=== PATIENT | female | born 1990 | race Caucasian/White ===

== ENCOUNTER 2017-04-09 04:09 | Emergency (ER) | payer OTHER ==
[~2017-04-09] VITALS: Ht 167.6 cm; Wt 123.0 kg
[~2017-04-09 04:09] MED LIST: PRENAT PO
[2017-04-09 04:15] VITALS: Ht 167.6 cm; Wt 123.0 kg
[2017-04-09] MEDS ORDERED: ONDANSETRON 4 MG INJ IV STA (04:23)
[2017-04-09] MEDS ORDERED: FAMOTIDINE 20 MG INJ IV STA (04:23)
[2017-04-09] MEDS ORDERED: SOD CHLORIDE 0.9% 1,000 ML IV STA (04:23)
[2017-04-09] MEDS ORDERED: KETOROLAC 30 MG INJ IV STA (04:23)
[2017-04-09 04:45] LABS: BASOPHIL # 0.1 10^3/ul (0.0-0.1); BASOPHILS % 0.8 % (0.0-2.0); EOSINOPHILS # 0.2 10^3/ul (0.0-0.5); EOSINOPHILS % 2.6 % (0.0-7.0); HEMATOCRIT 42.8 % (37.0-47.0); HEMOGLOBIN 14.1 g/dl (12.0-16.0); LYMPHOCYTES % 32.2 % (15.0-51.0); MEAN CORPUSCULAR HEMOGLOBIN 28.5 pg (29.0-33.0); MEAN CORPUSCULAR HGB CONC 32.9 g/dl (32.0-37.0); MEAN CORPUSCULAR VOLUME 86.6 fl (82.0-101.0); MONOCYTE # 1.1 10^3/ul (0.3-0.9); NEUTROPHIL # 4.9 10^3/ul (1.6-7.5); NEUTROPHILS % 52.1 % (39.0-77.0); PLATELET COUNT 314 10^3/UL (140-415); RED BLOOD COUNT 4.94 10^6/ul (4.20-5.40); RED CELL DISTRIBUTION WIDTH 13.1 % (11.5-14.5); WHITE BLOOD COUNT 9.3 10^3/ul (4.8-10.8)
[2017-04-09] MEDS ORDERED: morphine 4 MG/ML VIAL IV STA (04:53)
[2017-04-09 05:07] LABS: ALBUMIN 4.7 g/dl (3.3-4.9); ALBUMIN/GLOBULIN RATIO 1.38; BILIRUBIN,INDIRECT 0.3 mg/dl (0-1.1); BILIRUBIN,TOTAL 0.3 mg/dl (0.2-1.3); CALCIUM 10.4 mg/dl (8.4-10.2); CREATININE 0.76 mg/dl (0.44-1.00); POTASSIUM 4.2 mmol/L (3.5-5.1); TOTAL PROTEIN 8.1 g/dl (6.1-8.1)
--- NOTE | 2017-04-09 05:24 | RADRPT ---
PROCEDURE: Abdominal ultrasound, limited. CLINICAL INDICATION: Abdominal pain. TECHNIQUE: Multiple real-time images were acquired of the patient's right upper abdomen utilizing a high resolution transducer. COMPARISON: 04/15/2016. FINDINGS: The liver demonstrates increased echogenicity and size measuring 17.4 cm. There is no focal mass or intrahepatic biliary ductal dilatation. The portal vein is patent. The gallbladder is distended. Multiple echogenic gallstones are identified. There is focal tenderness over the gallbladder. The re is no pericholecystic fluid or gallbladder wall thickening. The common bile duct measures 4.1 mm in maximal dimension. The pancreas is obscured by overlying bowel gas. No free fluid is identifie d. The right kidney is normal size and echogenicity measuring 12.1 cm. There is no focal renal mass or echogenic calculus identified. There is no obstructive uropathy. The visualized abdominal aorta a nd vena cava are unremarkable. IMPRESSION: Cholelithiasis with positive sonographic Dailey's sign. There is no gallbladder wall thickening or pericholecystic fluid. Fatty infiltration of the liver. Pancreas obscured by overlying bowel gas. .Stef Valenzuela MD, MD Date Time Electronically viewed and signed by .Stef Valenzuela MD, MD on 04/09/2017 05:23 .T/
[2017-04-09 05:29] VITALS: BP 134/81; PULSE 52; RESP 16
--- NOTE | 2017-04-09 05:30 | ERD ---
ER Documentation Chief Complaint Date/Time DATE: 04/09/17 TIME: 05:28 Chief Complaint RUQ pain 10/10 this evening, history of gallstones HPI This is a 26-year-old female who presents to the emergency room for evaluation of abdominal pain. The patient states that she has had abdominal pain for the past 4 hours and she localizes it to the right upper quadrant. She does state she has a history of gallstones. She does see her pain for similar to previous gallstone attacks. The patient states that her pain does radiate to the back and is associated with mild nausea but no vomiting. No fevers at home. Patient denies any relieving factors for her symptoms and states that movement does aggravate her symptoms. ROS All systems reviewed and are negative except as per history of present illness. Medications Home Meds Reported Medications Multivit/Min/Fol Ac/Iron/Pren* ( S*) 1 Tab Tab, 1 TAB PO DAILY, TAB 04/17/16 Allergies Allergies: Coded Allergies: No Known Allergy (Verified , 07/12/16) PMhx/Soc History of Surgery: Yes () Anesthesia Reaction: No Hx Neurological Disorder: No Hx Respiratory Disorders: Yes (ASTHMA) Hx Cardiac Disorders: No Hx Psychiatric Problems: No Hx Miscellaneous Medical Probl: No Hx Alcohol Use: No Hx Substance Use: No Hx Tobacco Use: No Smoking Status: Unknown if ever smoked Physical Exam Vitals Vital Signs Date Time Temp Pulse Resp B/P Pulse Ox O2 Delivery O2 Flow Rate FiO2 04/09/17 04:15 98.6 75 20 143/69 97 Physical Exam INITIAL VITAL SIGNS: Reviewed by me GENERAL: The patient is well developed and appropriate for usual state of health in no apparent distress HEENT: Pupils equal, round, and reactive to light. EOMI. There is no scleral icterus. NECK: C-spine is soft and supple, there is no meningismus. There is no cervical lymphadenopathy. LUNGS: Clear to auscultation bilaterally. There are no rales, wheezes or rhonchi. HEART: Regular rate and rhythm, no murmurs, clicks, rubs or gallops. ABDOMEN: Positive Dailey sign, other soft, non-tender, non-distended. There are bowel sounds in all four quadrants. No rebound or guarding. EXTREMITIES: There is no peripheral cyanosis or edema. No focal swelling or erythema. NEUROLOGICAL: The patient moves all four extremities with 5/5 strength. Cranial nerves II - XII are intact. Normal gait. Alert and oriented SKIN: There is no apparent rash or petechiae. HEME/LYMPHATIC: There is no evidence of excessive bruising or lymphedema. PSYCHIATRIC: The patient does not appear anxious or depressed. Result Diagram: 04/09/17 0430 04/09/17 0430 Results 24 hrs Laboratory Tests Test 04/09/17 04:30 White Blood Count 9.310^3/ul Red Blood Count 4.9410^6/ul Hemoglobin 14.1g/dl Hematocrit 42.8% Mean Corpuscular Volume 86.6fl Mean Corpuscular Hemoglobin 28.5pg Mean Corpuscular Hemoglobin Concent 32.9g/dl Red Cell Distribution Width 13.1% Platelet Count 48017^3/UL Mean Platelet Volume 11.0fl Neutrophils % 52.1% Lymphocytes % 32.2% Monocytes % 12.0% Eosinophils % 2.6% Basophils % 0.8% Nucleated Red Blood Cells % 0.0/100WBC Neutrophils # 4.910^3/ul Lymphocytes # 3.010^3/ul Monocytes # 1.110^3/ul Eosinophils # 0.210^3/ul Basophils # 0.110^3/ul Nucleated Red Blood Cells # 0.010^3/ul Sodium Level 147mmol/L Potassium Level 4.2mmol/L Chloride Level 102mmol/L Carbon Dioxide Level 28mmol/L Anion Gap 21 Blood Urea Nitrogen 11mg/dl Creatinine 0.76mg/dl Glucose Level 109mg/dl Calcium Level 10.4mg/dl Total Bilirubin 0.3mg/dl Direct Bilirubin 0.00mg/dl Indirect Bilirubin 0.3mg/dl Aspartate Amino Transf (AST/SGOT) 28IU/L Alanine Aminotransferase (ALT/SGPT) 78IU/L Alkaline Phosphatase 84IU/L Total Protein 8.1g/dl Albumin 4.7g/dl Globulin 3.40g/dl Albumin/Globulin Ratio 1.38 Lipase 145U/L Current Medications Medications (Trade) Dose Ordered Sig/Andre Route PRN Reason Start Time Stop Time Status Last Admin Dose Admin Sodium Chloride (NS) 1,000 ml @ 1,000 mls/hr Q1H STAT IV 04/09/17 04:23 04/09/17 05:22 DC 04/09/17 04:48 Ondansetron HCl (Zofran Inj) 4 mg ONCE STAT IV 04/09/17 04:23 04/09/17 04:24 DC 04/09/17 04:48 Famotidine (Pepcid Iv) 20 mg ONCE STAT IV 04/09/17 04:23 04/09/17 04:24 DC 04/09/17 04:48 Ketorolac Tromethamine (Toradol) 30 mg ONCE STAT IV 04/09/17 04:23 04/09/17 04:24 DC 04/09/17 04:48 Morphine Sulfate (morphine) 4 mg ONCE STAT IV 04/09/17 04:53 04/09/17 04:54 DC 04/09/17 04:58 Procedures/MDM Ultrasound gallbladder: Cholelithiasis with positive sonographic Dailey's sign. There is no gallbladder wall thickening or pericholecystic fluid. Fatty infiltration of the liver. Pancreas obscured by overlying bowel gas. This 26-year-old female presents to the ER for evaluation of abdominal pain. When I evaluated her she had a right upper quadrant tenderness. An ultrasound was obtained given this patient's history of gallstones. This patient does have cholelithiasis however she does not have any cholecystitis. She is afebrile, no leukocytosis, no elevations in LFTs are bilirubin. The patient was given morphine and Toradol for her pain, and when I reevaluated this patient she stated she is feeling much better at this time. This patient will be discharged at this time with a prescription for Neche, I advised her to adjust her diet, and she will also be given a referral for outpatient general surgery for elective cholecystectomy. She was advised she can return to the ER anytime for further evaluation and she verbalized understanding. Departure Diagnosis: Primary Impression: Biliary colic Additional Impressions: Cholelithiasis Abdominal pain Condition: Stable EARL LOZADA DO Apr 09, 2017 05:30
[2017-04-09] MEDS ORDERED: HYDR-906 PO (05:32)
== END 2017-04-09 05:39 | disposition home or self-care (01) ==
LOC: E/R 04:09
DX: K80.70 Calculus of gallbladder and bile duct without cholecystitis without obstruction (principal); R11.0 Nausea; J45.909 Unspecified asthma, uncomplicated
CPT/HCPCS: 36415; 76705; 80053; 83690; 85025; 96374; 96375; J1885; J2270; J2405; J7030; Z7502; Z7610

== ENCOUNTER 2017-09-20 18:24 | Emergency (ER) | END 2017-09-20 22:28 | disposition home or self-care (01) ==

== ENCOUNTER 2017-11-20 02:10 | Emergency (ER) | END 2017-11-20 04:22 | disposition home or self-care (01) ==